=== PATIENT | female | born 1970 | race Two or more races ===

== ENCOUNTER 2017-06-15 09:27 | Emergency (ER) | payer OTHER ==
[~2017-06-15] VITALS: Ht 167.6 cm; Wt 71.7 kg
[2017-06-15 09:30] VITALS: BP 143/92
[2017-06-15] MEDS ORDERED: HYDROCODONE/APAP 5/325MG 1 EACH TABLET ONE (09:54)
[2017-06-15] MEDS ORDERED: IBUPROFEN 600 MG TABLET PO ONE ×2 (09:54→10:00)
[2017-06-15] MEDS ORDERED: HYDROCODONE/APAP 5/325MG 1 EACH TABLET PO ONE (10:00)
== END 2017-06-15 09:59 | disposition home or self-care (01) ==
LOC: ER 09:29
DX: M54.5 Low back pain (principal)
CPT/HCPCS: 99283; A4606; Z7610